=== PATIENT | male | born 1955 | race Caucasian/White ===

== ENCOUNTER 2018-01-21 11:03 | Observation (INO) | payer BC, OTHER ==
[2018-01-21] VITALS (8 sets, daily range): BP systolic 134–175; BP diastolic 79–90; PULSE 50–69; RESP 16–18; TEMP 97.8–98.4; O2SAT 96–98
[~2018-01-21] VITALS: Ht 165.1 cm; Wt 92.0 kg
[2018-01-21] MEDS ORDERED: NITROGLYCERIN 0.4 MG SL 25 TABS/BTL SL ONE (12:00)
[2018-01-21] MEDS ORDERED: ASPIRIN 325 MG TAB PO ONE (12:00)
[2018-01-21] MEDS ORDERED: SODIUM CHLORIDE 0.9% FLUSH 10 ML FLUSH IVF PRN (12:00)
[2018-01-21] MEDS ORDERED: ACETAMINOPHEN 325 MG TAB PO ONE (12:15)
[2018-01-21 12:39] LABS: AUTOMATED NEUTROPHIL # 5.5 TH/MM3 (1.8-7.7); BASOPHIL # 0.1 TH/MM3 (0-0.2); BASOPHIL % 0.9 % (0.0-2.0); EOSINOPHIL # 0.7 TH/MM3 (0-0.4); EOSINOPHIL % 7.4 % (0.0-4.0); HEMATOCRIT 46.5 % (39.0-51.0); LYMPH % 29.9 % (9.0-44.0); LYMPHOCYTE # 2.8 TH/MM3 (1.0-4.8); MEAN CELL VOLUME 87.1 FL (80.0-100.0); MEAN CORPUSCULAR HEMOGLOBIN 29.9 PG (27.0-34.0); MEAN CORPUSCULAR HGB CONC 34.4 % (32.0-36.0); MEAN PLATELET VOLUME 8.7 FL (7.0-11.0); MONO % 4.4 % (0.0-8.0); MONOCYTE # 0.4 TH/MM3 (0-0.9); NEUT % 57.4 % (16.0-70.0); PLATELET COUNT 231 TH/MM3 (150-450); RED BLOOD COUNT 5.33 MIL/MM3 (4.50-5.90); RED CELL DISTRIBUTION WIDTH 14.6 % (11.6-17.2); WHITE BLOOD COUNT 9.5 TH/MM3 (4.0-11.0)
[2018-01-21 12:58] LABS: AST (GOT) 25 U/L (15-37); BICARBONATE 27.1 MEQ/L (21.0-32.0); BLOOD UREA NITROGEN 10 MG/DL (7-18); CALCIUM 8.7 MG/DL (8.5-10.1); CHLORIDE 106 MEQ/L (98-107); CREATININE 0.92 MG/DL (0.60-1.30); GLOMERULAR FILTRATION RATE 83 ML/MIN (>89); GLUCOSE,RANDOM 98 MG/DL (74-106); MAGNESIUM 1.9 MG/DL (1.5-2.5); SODIUM (NA) 139 MEQ/L (136-145)
[2018-01-21 13:03] LABS: ALKALINE PHOSPHATASE 93 U/L (45-117); ALT (GPT) 33 U/L (12-78); TOTAL BILIRUBIN ADULT 0.5 MG/DL (0.2-1.0); TOTAL PROTEIN 8.4 GM/DL (6.4-8.2); TROPONIN I LESS THAN 0.02 NG/ML (0.02-0.05)
--- NOTE | 2018-01-21 13:11 | RADRPT ---
EXAM DATE/TIME: 01/21/2018 12:19 [place] COMPARISON: No previous studies available for comparison. INDICATIONS : Chest pain. MEDICAL HISTORY : None. SURGICAL HISTORY : CABG. ENCOUNTER: Initial ACUITY: 2 days PAIN SCORE: 6/10 LOCATION: Left upper chest FINDINGS: A single view of the chest demonstrates the lungs to be symmetrically aerated without evidence of mas s, infiltrate or effusion. The cardiomediastinal contours are unremarkable. Osseous structures are intact. Prior median sternotomy. CONCLUSION: The lungs are clear. Yvon Boss MD on January 21, 2018 at 13:08 Board Certified Radiologist. This report was verified electronically.
--- NOTE | 2018-01-21 13:37 | PD ---
HPI Chief Complaint: Chest Pain Time Seen by Provider: 11:49 Travel History International Travel<30 days: No Contact w/Intl Traveler<30days: No Traveled to known affect area: No History of Present Illness HPI 62-year-old male presents to the ED for evaluation of chest pain. Per patient he has this chest pain on and off for the past week. He has a significant history of heart disease with a triple bypass about more than 10 years ago. Per patient she follows with her business intelligence engineer but not locally. [facility]. He [facility] from [facility] on July and states that he is in the process of getting a business intelligence engineer in the next couple of weeks. He does not have one at this time. Per patient since this week he has been noticing some chest pain that comes and goes. Per patient is pressure- like and sharp. Nothing really makes it better or worse. Denies any urinary or bowel movement issues. No numbness or tingling. Per patient he does have a history of high blood pressure, high cholesterol and a history of heart disease. He denies taking blood thinners but does take a baby aspirin a day. Patient has not taken anything for this. He also tells me that he has a strong history of anxiety. He takes medications for this. He states that he has been taking this medication since having the bypass. He is not sure if this is related to anxiety or hard and that is what concerned him. No trauma. No recent travel in the past 3 months. PFSH Past Medical History Cardiovascular Problems: Yes (TRIPLE BYPASS 2006, betablocker for rate) High Cholesterol: Yes Coronary Artery Disease: Yes Past Surgical History Coronary Artery Bypass Graft: Yes Tonsillectomy: Yes Social History Alcohol Use: Yes (sometimes) Tobacco Use: No Substance Use: No Allergies-Medications (Allergen,Severity, Reaction): Coded Allergies: No Known Allergies (Unverified , 01/21/18) Review of Systems Except as stated in HPI: all other systems reviewed are Neg Physical Exam Narrative GENERAL: SKIN: Warm and dry. HEAD: Atraumatic. Normocephalic. EYES: Pupils equal and round. No scleral icterus. No injection or drainage. ENT: No nasal bleeding or discharge. Mucous membranes pink and moist. Tongue is midline. No uvula deviation. NECK: Trachea midline. No JVD. CARDIOVASCULAR: Regular rate and rhythm. No murmurs, S3, S4. RESPIRATORY: No accessory muscle use. Clear to auscultation. Breath sounds equal bilaterally. GASTROINTESTINAL: Abdomen soft, non-tender, nondistended. Hepatic and splenic margins not palpable. MUSCULOSKELETAL: Extremities without clubbing, cyanosis, or edema. No obvious deformities. Full range of motion of the upper and lower extremities bilaterally. 2+ pulses bilaterally. NEUROLOGICAL: Awake and alert. No obvious cranial nerve deficits. Motor grossly within normal limits. Five out of 5 muscle strength in the arms and legs. Normal speech. PSYCHIATRIC: Appropriate mood and affect; insight and judgment normal. Data Data Last Documented VS Vital Signs Date Time Temp Pulse Resp B/P (MAP) Pulse Ox O2 Delivery O2 Flow Rate FiO2 01/21/18 13:02 96 Room Air 01/21/18 13:02 01/21/18 13:01 59 18 01/21/18 11:09 98.0 Orders Orders Electrocardiogram (01/21/18 ) Ckmb (Isoenzyme) Profile (01/21/18 11:59) Complete Blood Count With Diff (01/21/18 11:59) Comprehensive Metabolic Panel (01/21/18 11:59) Magnesium (Mg) (01/21/18 11:59) Prothrombin Time / Inr (Pt) (01/21/18 11:59) Act Partial Throm Time (Ptt) (01/21/18 11:59) Troponin I (01/21/18 11:59) Lipase (01/21/18 11:59) Chest, Single Ap (01/21/18 11:59) Ecg Monitoring (01/21/18 11:59) Bilateral Bp Monitoring (01/21/18 11:59) Iv Access Insert/Monitor (01/21/18 11:59) Oximetry (01/21/18 11:59) Oxygen Administration (01/21/18 11:59) Sodium Chloride 0.9% Flush (Ns Flush) (01/21/18 12:00) Nitroglycerin Sl (Nitrostat Sl) (01/21/18 12:00) Aspirin (Aspirin) (01/21/18 12:00) Acetaminophen (Tylenol) (01/21/18 12:15) Admit Order (Ed Use Only) (01/21/18 13:31) Labs Laboratory Tests Test 01/21/18 12:05 White Blood Count 9.5 TH/MM3 Red Blood Count 5.33 MIL/MM3 Hemoglobin 16.0 GM/DL Hematocrit 46.5 % Mean Corpuscular Volume 87.1 FL Mean Corpuscular Hemoglobin 29.9 PG Mean Corpuscular Hemoglobin Concent 34.4 % Red Cell Distribution Width 14.6 % Platelet Count 231 TH/MM3 Mean Platelet Volume 8.7 FL Neutrophils (%) (Auto) 57.4 % Lymphocytes (%) (Auto) 29.9 % Monocytes (%) (Auto) 4.4 % Eosinophils (%) (Auto) 7.4 % Basophils (%) (Auto) 0.9 % Neutrophils # (Auto) 5.5 TH/MM3 Lymphocytes # (Auto) 2.8 TH/MM3 Monocytes # (Auto) 0.4 TH/MM3 Eosinophils # (Auto) 0.7 TH/MM3 Basophils # (Auto) 0.1 TH/MM3 CBC Comment DIFF FINAL Differential Comment Prothrombin Time 10.0 SEC Prothromb Time International Ratio 1.0 RATIO Activated Partial Thromboplast Time 27.9 SEC Blood Urea Nitrogen 10 MG/DL Creatinine 0.92 MG/DL Random Glucose 98 MG/DL Total Protein 8.4 GM/DL Albumin 4.0 GM/DL Calcium Level 8.7 MG/DL Magnesium Level 1.9 MG/DL Alkaline Phosphatase 93 U/L Aspartate Amino Transf (AST/SGOT) 25 U/L Alanine Aminotransferase (ALT/SGPT) 33 U/L Total Bilirubin 0.5 MG/DL Sodium Level 139 MEQ/L Potassium Level 4.2 MEQ/L Chloride Level 106 MEQ/L Carbon Dioxide Level 27.1 MEQ/L Anion Gap 6 MEQ/L Estimat Glomerular Filtration Rate 83 ML/MIN Total Creatine Kinase 75 U/L Troponin I LESS THAN 0.02 NG/ML Lipase 117 U/L [facility] Medical Decision Making Medical Screen Exam Complete: Yes Emergency Medical Condition: Yes Medical Record Reviewed: Yes Interpretation(s) EKG shows sinus rhythm with no sign of acute ischemia or arrhythmia read by me and attending. Troponin and CK-MB negative. CBC & BMP Diagram 01/21/18 12:05 Total Protein 8.4 H, Albumin 4.0, Calcium Level 8.7, Magnesium Level 1.9, Alkaline Phosphatase 93, Aspartate Amino Transf (AST/SGOT) 25, Alanine Aminotransferase (ALT/SGPT) 33, Total Bilirubin 0.5 Last Impressions Chest X-Ray 01/21/18 1159 Signed Impressions: Service Date/Time: Sunday, January 21, 2018 12:19 - CONCLUSION: The lungs are clear. Yvon Boss MD Differential Diagnosis Chest pain versus ACS versus versus acute chest pain versus angina versus anxiety versus atypical chest pain Narrative Course 62-year-old male that presents to the ED for evaluation of chest pain. Patient was properly examined and was found to have signs and symptoms consistent appears to be chest pain. Unclear etiology at this time but definitely concerning for ACS. Labs and imaging order. Labs and imaging were essentially unremarkable. This time a recommend admission to the chest pain center for stress test this patient tells me that he has not had any in some time. She does have risk factors. Cannot completely rule out ACS. Patient agrees with this plan. Patient was already given aspirin and nitroglycerin and had resolution of symptoms. Diagnosis Primary Impression: Chest pain in adult Admitting Information Admitting Physician Requests: Observation Wojciech Perez Jan 21, 2018 13:37
--- NOTE | 2018-01-21 15:12 | HHI.HP ---
HPI Primary Care Physician [facility] Chief Complaint Chest pain History of Present Illness This is a 62-year-old male that presents to ED via private vehicle with a complaint of 3 days of intermittent central chest discomfort that he describes as an ache. It has been there intermittently. It lasts anywhere from a few minutes to a few hours. Not associated with activity. He believes this occurred maybe 4 times. Found nothing to worsen or improve the symptoms when they are present. Denies associated shortness of breath, nausea, or diaphoresis. He has history of CAD and had a three-vessel bypass in 2006. States he was asymptomatic at that time. States he underwent a cardiac evaluation secondary to family history of CAD. Had an abnormal stress test that led to a cardiac catheterization that revealed the need for three-vessel bypass. States he has had no stress test or heart catheterization since. Denies recent illness. Denies fevers or chills. Voices compliance with his medications. Review of Systems General: Patient denies fevers, chills, and recent travel. HEENT: Patient denies headache, sore throat, difficulty swallowing. Cardiovascular: Has the chest discomfort as mentioned above. Denies sensation of heart beating rapidly or irregularly. No syncope. Denies diaphoresis. Respiratory: Denies shortness of breath or inspirational chest discomfort. Denies coughing wheezing or hemoptysis. GI: Patient denies nausea, vomiting, diarrhea, abdominal pain, bloody stools. Musculoskeletal: Patient denies joint pain or edema. Denies calf pain or edema. Neurovascular: Patient denies numbness, tingling, weakness in extremities. Denies headache. Endocrine: Denies polyuria and polydipsia. Hematologic: Denies easy bruising. Skin: Denies rash or itching. Past Family Social History Allergies: Coded Allergies: No Known Allergies (Unverified , 01/21/18) Past Medical History CAD with a three-vessel bypass 2006. Hyperlipidemia. Denies hypertension or diabetes. Past history of tobacco abuse but quit smoking 20 years ago. Past Surgical History Three-vessel bypass in 2006. Active Ordered Medications Current Medications Medications (Trade) Dose Ordered Sig/Adrian Route Start Time Stop Time Status Last Admin (NS Flush) 2 ml UNSCH PRN IVF 01/21/18 12:00 Family History His father had CAD. Social History Quit smoking 20 years ago but prior to that he smoked one half pack of cigarettes daily for 10 years. Has occasional alcohol. Denies illicit drugs. He is . Physical Exam Vital Signs Vital Signs Date Time Temp Pulse Resp B/P (MAP) Pulse Ox O2 Delivery O2 Flow Rate FiO2 01/21/18 13:02 96 Room Air 01/21/18 13:02 96 Room Air 01/21/18 13:01 59 18 134/79 (97) 97 Room Air 01/21/18 13:00 54 18 96 Room Air 01/21/18 11:09 98.0 69 18 175/90 (118) 96 Physical Exam GENERAL: This is a well-nourished, well-developed patient, in no apparent distress. Patient speaks in clear complete sentences. Patient is pleasant. HEENT: Head is atraumatic and normocephalic. Neck is supple without lymphadenopathy and trachea is midline. No JVD or carotid bruits. CARDIOVASCULAR: Regular rate and rhythm without murmurs, gallops, or rubs. RESPIRATORY: Clear to auscultation. Breath sounds equal bilaterally. No wheezes , rales, or rhonchi. Chest wall is nontender. No use of accessory muscles. GASTROINTESTINAL: Abdomen is nontender, nondistended. Abdomen soft. No obvious pulsatile mass or bruit. No CVA tenderness. Strong femoral pulses bilaterally. Normal bowel sounds in all quadrants. MUSCULOSKELETAL: Patient is moving upper and lower extremities freely. No calf tenderness or edema, no Homans sign. Strong pulses in upper and lower extremities. NEUROLOGICAL: Patient is alert and oriented. Cranial nerves 2-12 are grossly intact. No focal deficits and speech is clear. SKIN: No rash and turgor is normal. Laboratory Laboratory Tests Test 01/21/18 12:05 White Blood Count 9.5 Red Blood Count 5.33 Hemoglobin 16.0 Hematocrit 46.5 Mean Corpuscular Volume 87.1 Mean Corpuscular Hemoglobin 29.9 Mean Corpuscular Hemoglobin Concent 34.4 Red Cell Distribution Width 14.6 Platelet Count 231 Mean Platelet Volume 8.7 Neutrophils (%) (Auto) 57.4 Lymphocytes (%) (Auto) 29.9 Monocytes (%) (Auto) 4.4 Eosinophils (%) (Auto) 7.4 Basophils (%) (Auto) 0.9 Neutrophils # (Auto) 5.5 Lymphocytes # (Auto) 2.8 Monocytes # (Auto) 0.4 Eosinophils # (Auto) 0.7 Basophils # (Auto) 0.1 CBC Comment DIFF FINAL Differential Comment Prothrombin Time 10.0 Prothromb Time International Ratio 1.0 Activated Partial Thromboplast Time 27.9 Blood Urea Nitrogen 10 Creatinine 0.92 Random Glucose 98 Total Protein 8.4 Albumin 4.0 Calcium Level 8.7 Magnesium Level 1.9 Alkaline Phosphatase 93 Aspartate Amino Transf (AST/SGOT) 25 Alanine Aminotransferase (ALT/SGPT) 33 Total Bilirubin 0.5 Sodium Level 139 Potassium Level 4.2 Chloride Level 106 Carbon Dioxide Level 27.1 Anion Gap 6 Estimat Glomerular Filtration Rate 83 Total Creatine Kinase 75 Troponin I LESS THAN 0.02 Lipase 117 Result Diagram: 01/21/18 1205 01/21/18 1205 Imaging Last 48 hours Impressions Chest X-Ray 01/21/18 1159 Signed Impressions: Service Date/Time: Sunday, January 21, 2018 12:19 - CONCLUSION: The lungs are clear. Yvon Boss MD Course Initial EKG is sinus rhythm rate [address] segment depressions or elevations. Caprini VTE Risk Assessment Caprini VTE Risk Assessment: Mod/High Risk (score >= 2) Caprini Risk Assessment Model Point Value = 1 Point Value = 2 Point Value = 3 Point Value = 5 Age 41-60 Minor surgery BMI > 25 kg/m2 Swollen legs Varicose veins or History of unexplained or recurrent spontaneous Oral contraceptives or hormone replacement Sepsis (< 1 month) Serious lung disease, including pneumonia (< 1 month) Abnormal pulmonary function Acute myocardial infarction Congestive heart failure (< 1 month) History of inflammatory bowel disease Medical patient at bed rest Age 61-74 Arthroscopic surgery Major open surgery (> 45 min) Laparoscopic surgery (> 45 min) Malignancy Confined to bed (> 72 hours) Immobilizing plaster cast Central venous access Age >= 75 History of VTE Family history of VTE Factor V Leiden Prothrombin [id number] Lupus anticoagulant Anticardiolipin antibodies Elevated serum homocysteine Heparin-induced thrombocytopenia Other congenital or acquired thrombophilia Stroke (< 1 month) Elective arthroplasty Hip, pelvis, or leg fracture Acute spinal cord injury (< 1 month) Prophylaxis Regimen Total Risk Factor Score Risk Level Prophylaxis Regimen 0-1 Low Early ambulation 2 Moderate Order ONE of the following: *Sequential Compression Device (SCD) *Heparin 5000 units SQ BID 3-4 Higher Order ONE of the following medications: *Heparin 5000 units SQ TID *Enoxaparin/Lovenox 40 mg SQ daily (WT < 150 kg, CrCl > 30 mL/min) *Enoxaparin/Lovenox 30 mg SQ daily (WT < 150 kg, CrCl > 10-29 mL/min) *Enoxaparin/Lovenox 30 mg SQ BID (WT < 150 kg, CrCl > 30 mL/min) AND/OR *Sequential Compression Device (SCD) 5 or more Highest Order ONE of the following medications: *Heparin 5000 units SQ TID (Preferred with Epidurals) *Enoxaparin/Lovenox 40 mg SQ daily (WT < 150 kg, CrCl > 30 mL/min) *Enoxaparin/Lovenox 30 mg SQ daily (WT < 150 kg, CrCl > 10-29 mL/min) *Enoxaparin/Lovenox 30 mg SQ BID (WT < 150 kg, CrCl > 30 mL/min) AND *Sequential Compression Device (SCD) Assessment and Plan Assessment and Plan * Chest pain: Patient does have history of CAD. He will continue to have serial cardiac enzymes and EKGs for ruling out purposes. He will be seen by Dr. Richardson of cardiology in the chest pain center and will likely have an ETT in the morning if he rules out. Patient be discharged home if the stress test is nonischemic with instructions [facility] as [facility]. Return to ED for interval issues. Resume his home medications. * CAD: Patient has history of a three-vessel bypass. This will be reassessed with stress testing if he rules out with serial cardiac enzymes and EKGs. * Hyperlipidemia: Continue medication. Patient is stable at this time. He is agreeable to this plan. Philippe Devlin Jan 21, 2018 15:11
[2018-01-21] MEDS ORDERED: ACETAMINOPHEN 500 MG CPLT PO PRN (15:15)
[2018-01-21] MEDS ORDERED: ALPRAZolam 0.25 MG TAB PO PRN (15:15)
[2018-01-21] MEDS ORDERED: ACETAMINOPHEN/HYDROcodone 325 MG/7.5 MG TAB PO PRN (15:15)
[2018-01-21] MEDS ORDERED: ONDANSETRON HCL 4 MG/2 ML VIAL IV PUSH PRN (15:15)
--- NOTE | 2018-01-21 15:32 | PD.CARD.PN ---
Subjective Subjective Remarks Patient was seen and examined personally and discussed with advanced practitioner. Assessment and plan were reviewed and are in agreement as dictated. 62-year-old man with known coronary artery disease status post CABG in 2006. Pertinent to note that he had no pain prior to his surgery and was picked up due to a positive stress test. His current chest pain is described as atypical but suggestive. I also found that he is chronic problems with reflux in it if he misses his medication even per day he has recurrent symptoms. He also works out both on the treadmill and a fairly strenuous level and with weights on an every other day basis last working out on Wednesday with no pain or problems from his workouts. Otherwise in agreement with the dictation as entered. Objective Medications Current Medications Medications (Trade) Dose Ordered Sig/Adrian Route Start Time Stop Time Status Last Admin (NS Flush) 2 ml UNSCH PRN IVF 01/21/18 12:00 (Tylenol) 500 mg Q4H PRN PO 01/21/18 15:15 ([place] 7.5-325 Mg) 1 tab Q4H PRN PO 01/21/18 15:15 (Zofran Inj) 4 mg Q6H PRN IV PUSH 01/21/18 15:15 UNV (Aspirin) 325 mg DAILY PO 01/22/18 09:00 UNV (Xanax) 0.25 mg Q8H PRN PO 01/21/18 15:15 UNV Vital Signs / I&O Vital Signs Date Time Temp Pulse Resp B/P (MAP) Pulse Ox O2 Delivery O2 Flow Rate FiO2 01/21/18 13:02 96 Room Air 01/21/18 13:02 96 Room Air 01/21/18 13:01 59 18 134/79 (97) 97 Room Air 01/21/18 13:00 54 18 96 Room Air 01/21/18 11:09 98.0 69 18 175/90 (118) 96 Physical Exam Well-nourished well-developed man in no acute distress Chest is clear to auscultation with good breath sounds no rales wheezes or rhonchi There is a well-healed midline surgical scar Cardiovascular reveals regular sinus rhythm no gallops rubs or murmurs Extremities reveal no edema Laboratory Laboratory Tests Test 01/21/18 12:05 White Blood Count 9.5 TH/MM3 Red Blood Count 5.33 MIL/MM3 Hemoglobin 16.0 GM/DL Hematocrit 46.5 % Mean Corpuscular Volume 87.1 FL Mean Corpuscular Hemoglobin 29.9 PG Mean Corpuscular Hemoglobin Concent 34.4 % Red Cell Distribution Width 14.6 % Platelet Count 231 TH/MM3 Mean Platelet Volume 8.7 FL Neutrophils (%) (Auto) 57.4 % Lymphocytes (%) (Auto) 29.9 % Monocytes (%) (Auto) 4.4 % Eosinophils (%) (Auto) 7.4 % Basophils (%) (Auto) 0.9 % Neutrophils # (Auto) 5.5 TH/MM3 Lymphocytes # (Auto) 2.8 TH/MM3 Monocytes # (Auto) 0.4 TH/MM3 Eosinophils # (Auto) 0.7 TH/MM3 Basophils # (Auto) 0.1 TH/MM3 CBC Comment DIFF FINAL Differential Comment Prothrombin Time 10.0 SEC Prothromb Time International Ratio 1.0 RATIO Activated Partial Thromboplast Time 27.9 SEC Blood Urea Nitrogen 10 MG/DL Creatinine 0.92 MG/DL Random Glucose 98 MG/DL Total Protein 8.4 GM/DL Albumin 4.0 GM/DL Calcium Level 8.7 MG/DL Magnesium Level 1.9 MG/DL Alkaline Phosphatase 93 U/L Aspartate Amino Transf (AST/SGOT) 25 U/L Alanine Aminotransferase (ALT/SGPT) 33 U/L Total Bilirubin 0.5 MG/DL Sodium Level 139 MEQ/L Potassium Level 4.2 MEQ/L Chloride Level 106 MEQ/L Carbon Dioxide Level 27.1 MEQ/L Anion Gap 6 MEQ/L Estimat Glomerular Filtration Rate 83 ML/MIN Total Creatine Kinase 75 U/L Troponin I LESS THAN 0.02 NG/ML Lipase 117 U/L Imaging Last 24 hours Impressions Chest X-Ray 01/21/18 1159 Signed Impressions: Service Date/Time: Sunday, January 21, 2018 12:19 - CONCLUSION: The lungs are clear. Yvon Boss MD Assessment and Plan Assessment and Plan With his known history of coronary artery disease we will rule out using a standard protocol if negative he will undergo exercise stress test in the a.m. Discussed Condition With Discussed with the patient and advanced practitioner Andrés Richardson MD Jan 21, 2018 15:32
[2018-01-21] MEDS ORDERED: ASPI-516 CHEW (16:05)
[2018-01-21] MEDS ORDERED: METO25TA3 PO (16:05)
[2018-01-21] MEDS ORDERED: OMEP20TA93 PO (16:05)
[2018-01-21] MEDS ORDERED: SERT-132 PO (16:05)
[2018-01-21] MEDS ORDERED: VITA1000 PO (16:05)
[2018-01-21] MEDS ORDERED: ROSU40 PO (16:05)
[2018-01-21 16:24] LABS: TROPONIN I LESS THAN 0.02 NG/ML (0.02-0.05)
[2018-01-21 18:34] LABS: TROPONIN I LESS THAN 0.02 NG/ML (0.02-0.05)
[2018-01-21] MEDS: METOPROLOL TARTRATE 25 MG TAB PO SCH (20:28)
[2018-01-22 00:18] VITALS: BP 132/75; PULSE 52; RESP 16; TEMP 96.1; O2SAT 97
[2018-01-22 07:20] VITALS: PULSE 65
[2018-01-22 07:40] VITALS: BP 130/89; PULSE 62; RESP 18; TEMP 98.2; O2SAT 95
[2018-01-22] MEDS ORDERED: ASPIRIN 325 MG TAB PO SCH (09:00)
[2018-01-22] MEDS ORDERED: SERTRALINE HCL 50 MG TAB PO SCH (09:00)
[2018-01-22] MEDS ORDERED: ATORVASTATIN 80 MG TAB PO SCH (09:00)
[2018-01-22] MEDS ORDERED: PANTOPRAZOLE SOD 20 MG DELAYED RELEASE TAB PO SCH (09:00)
[2018-01-22] MEDS ORDERED: CHOLECALCIFEROL (VIT D3) 1000 UNIT TAB PO SCH (09:00)
--- NOTE | 2018-01-22 09:56 | HHI.DS ---
Discharge Summary Admission Date Jan 21, 2018 at 13:33 Discharge Date: Jan 22, 2018 Admitting Diagnosis acute chest pain, r/o ACS (1) Atypical chest pain Diagnosis: Principal ICD Codes: R07.89 - Other chest pain Status: Resolved (2) Hx of coronary artery disease Diagnosis: Secondary ICD Codes: Z86.79 - Personal history of other diseases of the circulatory system Status: Chronic CBC/BMP: 01/21/18 1205 01/21/18 1205 Significant Findings Laboratory Tests Test 01/21/18 12:05 01/21/18 15:25 01/21/18 17:40 Eosinophils (%) (Auto) 7.4 % (0.0-4.0) Eosinophils # (Auto) 0.7 TH/MM3 (0-0.4) Total Protein 8.4 GM/DL (6.4-8.2) Estimat Glomerular Filtration Rate 83 ML/MIN (>89) Troponin I LESS THAN 0.02 NG/ML LESS THAN 0.02 NG/ML LESS THAN 0.02 NG/ML Imaging Last 48 hours Impressions Chest X-Ray 01/21/18 1159 Signed Impressions: Service Date/Time: Sunday, January 21, 2018 12:19 - CONCLUSION: The lungs are clear. Yvon Boss MD Hospital Course 61 year old male with history of CAD, CABG x3 10 years ago presented to ER for further evaluation of chest pain. Admitted to chest pain center. Ruled out with 3 sets of EKG and cardiac enzymes. Completed exercise stress testing which did not suggest ischemia. Discharged home, follow up with PCP and encouraged to establish with a local ob scrub tech. Pt Condition on Discharge: Good Discharge Disposition: Discharge Home Discharge Instructions DIET: Follow Instructions for: As Tolerated, No Restrictions, Heart Healthy Diet Activities you can perform: Regular-No Restrictions Anayeli Camp Jan 22, 2018 09:56
[2018-01-22] MEDS: METOPROLOL TARTRATE 25 MG TAB PO SCH (10:51)
--- NOTE | 2018-01-22 12:34 | TR ---
Date Performed: 01/22/2018 Time Performed: 09:11:02 DOCTOR: Deyvi Silva DRUG LIST: CLINICAL HISTORY: REASON FOR TEST: Chest pain REASON FOR ENDING: OBSERVATION: CONCLUSION: Magdy protocol completed. Stopped sec to exceeding target heart rate and leg fatigue . Maximum LS=334 Target HR Achieved=95.0% Maximum VP=771/100. No reprod chest discomfort. Rare PAC a nd PVC. Normal bp response. Great exercise tolerance. No st t segment changes to sugg ischemia. Recov deepak quick and unremarkable. COMMENTS: Conclusion: Normal treadmill exercise. No evidence of ischemia.
--- NOTE | 2018-01-22 12:40 | EKG ---
Date Performed: 01/21/2018 Time Performed: 18:53:54 PTAGE: 62 years EKG: SINUS BRADYCARDIA BORDERLINE ECG PREVIOUSince PREVIOUS TRACING , no significant change noted S TRACIN01/21/2018 15.29 DOCTOR: Deyvi Silva Interpretating Date/Time 01/22/2018 12:39:38
--- NOTE | 2018-01-22 12:45 | EKG ---
Date Performed: 01/21/2018 Time Performed: 15:29:02 PTAGE: 62 years EKG: SINUS BRADYCARDIA BORDERLINE ECG PREVIOUS TRACING : 01/21/2018 11.18 Since previous tracing, no significant change noted DOCTOR: Deyvi Silva Interpretating Date/Time 01/22/2018 12:43:53
--- NOTE | 2018-01-22 12:45 | EKG ---
Date Performed: 01/21/2018 Time Performed: 11:18:03 PTAGE: 62 years EKG: Sinus rhythm NORMAL ECG NO PREVIOUS TRACING DOCTOR: Deyvi Silva Interpretating Date/Time 01/22/2018 12:45:24
== END 2018-01-22 12:05 | disposition home or self-care (01) ==
LOC: NEPE 11:03 → NEDA 13:33 → NEPGCP 16:34
PROVIDERS: ADMIT Internal Medicine Interventional Cardiology; ATTEND Internal Medicine Interventional Cardiology
DX: R07.89 Other chest pain (principal); R94.31 Abnormal electrocardiogram [ECG] [EKG]; I25.10 Atherosclerotic heart disease of native coronary artery without angina pectoris; E78.5 Hyperlipidemia, unspecified; K21.9 Gastro-esophageal reflux disease without esophagitis; E78.00 Pure hypercholesterolemia, unspecified; Z82.49 Family history of ischemic heart disease and other diseases of the circulatory system; Z86.79 Personal history of other diseases of the circulatory system; Z87.891 Personal history of nicotine dependence; Z95.1 Presence of aortocoronary bypass graft
CPT/HCPCS: 71045; 80053; 82550; 83690; 83735; 84484; 85025; 85610; 85730; 93005; 93017; 99285; G0378